=== PATIENT | female | born 1935 | race Caucasian/White ===

== ENCOUNTER 2019-06-17 16:48 | Emergency (ER) | payer MEDICARE, BC ==
[~2019-06-17] VITALS: Ht 167.6 cm; Wt 107.5 kg
[2019-06-17] MEDS ORDERED: HYDR-3652 PO (17:04)
--- NOTE | 2019-06-17 17:42 | NUR ---
PT IN ROOM WITH . RN ENTERS AND PT BEING DISCHARGED. PT AMBULATED OUT OF ED PER PEDIS.
[2019-06-17 17:44] VITALS: BP 112/67
== END 2019-06-17 17:48 | disposition home or self-care (01) ==
LOC: ED 17:24
DX: J02.9 Acute pharyngitis, unspecified (principal); G89.29 Other chronic pain
CPT/HCPCS: 99282

== ENCOUNTER 2020-04-15 14:04 | Emergency (ER) | payer MEDICARE, BC ==
[~2020-04-15] VITALS: Ht 167.6 cm; Wt 103.4 kg
[~2020-04-15 14:04] MED LIST: HYDR-3652 PO
--- NOTE | 2020-04-15 14:26 | NUR ---
Pt states she has a sore throat that started yesterday that she wants to make sure doesn't get worse. Pt denies hx of strep. Denies voices changes. States it's "sore when swallowing." NADN. Call light in reach.
[2020-04-15 15:43] VITALS: BP 132/76
== END 2020-04-15 15:49 | disposition home or self-care (01) ==
LOC: ED 15:02
DX: J06.9 Acute upper respiratory infection, unspecified (principal); Z20.822 Contact with and (suspected) exposure to COVID-19; J02.8 Acute pharyngitis due to other specified organisms; G89.29 Other chronic pain
CPT/HCPCS: 87635; 99283